=== PATIENT | female | born 1995 | race Caucasian/White ===

== ENCOUNTER 2019-04-07 10:53 | Emergency (ER) | payer MEDICARE, MEDICAID, SELFPAY ==
--- NOTE | 2019-04-07 10:54 | W.ED.GENAD ---
Discharge Plan Disposition Patient Disposition: HOME Condition: Good Discharge Details Chief Complaint: Sorethroat Clinical Impression: URI (upper respiratory infection), Fatigue, Pharyngitis Primary Care Provider: Sandy,Local ED Provider: Rad Dos Santos Home Meds and New Rx's Prescriptions: No Action medroxyprogesterone [Depo-Provera] 150 mg/mL Syringe 1 mg IM DIRECTED RF: 0 albuterol sulfate [ProAir HFA] 90 mcg/actuation Hfa Aerosol Inhaler 2 puff INHALATION DIRECTED RF: 0 Discharge Instructions Instructions: Pharyngitis (ED), Upper Respiratory Infection (ED) Additional Instructions: Your strep test and mono test are negative. I suspect that your symptoms are secondary to a viral infection. Please drink plenty of fluids. Take 2 tablespoons of honey every 6 hours. Get plenty of rest. If you notice any worsening of your symptoms, or any new symptoms such as vomiting, diarrhea, fever, chills, shortness of breath, chest pain, numbness, weakness, or fainting , please return immediately to the emergency department for reevaluation. Please follow up with your primary care provider as soon as possible for reassessment and reevaluation. As always, it was a pleasure participating in your medical care today. Medical Decision Making This is a very pleasant 24-year-old female who presents today for evaluation of sore throat for the last 48 hours but mild to moderate fatigue for the last 2 weeks. No red flags of neck pain, headache, fever or chills. Exam demonstrates nontender spleen. Posterior oropharynx demonstrates mild erythema in the posterior oropharynx, no tonsillar exudates, minimal tonsillar swelling. Strep test was ordered and is negative. With the patient's fatigue I am concerned for mono. Will order mono test for further assessment. Regardless I do feel that the patient is safe for discharge home. Will recommend fluids, Tylenol Motrin as needed for pain, rest, and close follow-up with her PCP. 11:42 AM Monospot is negative, strep test is negative. Suspect viral URI. Discussed red flags which return. I have extensively reviewed the treatment plan and discharge instructions with the patient. I have addressed all patient concerns at this time. The patient was made aware of what symptoms to monitor for that would warrant a return to the emergency department. Discussed the plan with the patient, they demonstrate verbal understanding and agreement with our assessment and plan at this time. HPI General Date/Time Provider Initiated Documentation: 04/07/19 10:54. HPI Narrative: This is a pleasant 24-year-old female who presents today for evaluation of sore throat and fatigue. Patient states that for the last 48 hours she has had a mild sore throat, no associated cough, no acute no neck pain or tenderness. No difficulty swallowing. She has had a mild runny nose. In addition to this she has also noted 2 weeks of notable fatigue. No history of thyroid problems. No complaints of nausea, vomiting, chest pain or abdominal pain. No sick contacts with strep throat or mono. Patient denies any other complaints at this time. No recent surgeries, IV or illicit drug use or other complaints. No complaints of vaginal bleeding, recent bleeding. No history of anemia. Related Data Home Medications Medication Instructions Recorded Confirmed albuterol sulfate [ProAir HFA] 2 puff INHALATION DIRECTED 04/07/19 04/07/19 medroxyprogesterone [Depo-Provera] 1 mg IM DIRECTED 04/07/19 04/07/19 Allergies Allergy/AdvReac Type Severity Reaction Status Date / Time Iodinated Contrast Media Allergy Severe anaphylactic Unverified 04/07/19 11:14 shock Influenza Virus Vaccines AdvReac Mild vomiting Unverified 04/07/19 11:14 and muscle spasms Sulfa (Sulfonamide AdvReac Mild vomit Unverified 04/07/19 11:14 Antibiotics) Review of Systems Review of Systems All systems reviewed & are unremarkable except as noted in HPI and below PFSH Social History Smoking/Tobacco Use Status: Never Alcohol Intake: never Drug use: Occasionally Substance use type: marijuana Details: medical marijuana occassionally Do you feel safe at home: Yes Do you feel safe in your relationship?: Yes Additional Social history: hesitated on answering - states being addressed with VSP Exam Narrative Exam Narrative: 1.Const: Well-nourished, Well-developed, appearing stated age 2.Eyes: PERRL, no conjunctival injection, and symmetrical lids. No conjunctival pallor 3.ENT: Atraumatic external nose and ears. Moist MM. Neck: Symmetric, trachea midline, No thyromegaly. Minimal erythema in the posterior oropharynx. Minimal tonsillar enlargement. No tonsillar exudates. Patient demonstrates good movement of cervical neck. There is no nuchal rigidity, no nuchal tenderness. Patient is able to flex the neck without any difficulty or significant pain. Negative Kernig's and Brudzinski sign. 4.CVS: +S1/S2, No murmurs or gallops. Peripheral pulses 2+ and equal in all extremities. Brisk capillary refill in all extremities. 5.RESP: Unlabored respiratory effort. Clear to auscultation bilaterally. No wheezes rales or rhonchi 6.GI: Soft, Nontender/Nondistended, No hepatosplenomegaly. No guarding or rebound. No tenderness around the spleen. 7.MSK: Normocephalic/Atraumatic, Extremities w/o deformity or ttp No cyanosis or clubbing, Normal movement of all extremities 8.Skin: Warm, Dry. No rashes or lesions. 9.Neuro: water server II-XII grossly intact. Sensation grossly intact, no focal neurologic deficits. 10.Psych: (AAO) x3. Appropriate mood and affect
[2019-04-07 11:03] VITALS: BP 103/69; PULSE 84; RESP 12; TEMP 37; O2SAT 99
[2019-04-07 11:37] LABS: Mono Screening Negative (Negative)
== END 2019-04-07 11:48 | disposition home or self-care (01) ==
LOC: ER 11:34
PROVIDERS: Emergency Provider Student in an Organized Health Care Education/Training Program
DX: J02.9 Acute pharyngitis, unspecified (principal); J06.9 Acute upper respiratory infection, unspecified; R53.83 Other fatigue
CPT/HCPCS: 36415; 87880; 99282; 86308; 87081; 99283